=== PATIENT | male | born 1955 | race Caucasian/White ===

== ENCOUNTER 2017-04-13 12:25 | Emergency (ER) | payer SELFPAY ==
[~2017-04-13] VITALS: Ht 182.9 cm; Wt 97.0 kg
[~2017-04-13 12:25] MED LIST: BLOOD PRESSURE; PROZAC40 MG PO
[2017-04-13 13:01] LABS: MCH 32.7 PG (29.0-34.0); MCHC 34.3 G/DL (30.0-36.0); MCV 95.3 FL (86-99); MEAN PLAT.VOLUME 9.4 uM^3 (9.0-12.4); PLATELET COUNT 224 K/uL (156-360); RBC DIS.WIDTH-CV 11.9 % (11.8-14.6); RBC DIS.WIDTH-SD 41.8 % (39-53); RED BLOOD COUNT 5.14 M/uL (4.00-5.50); WHITE BLOOD COUNT 8.5 K/uL (4.1-10.2)
[2017-04-13 13:13] LABS: CHLORIDE 102 mEq/L (99-109); SODIUM 138 mEq/L (136-147)
[2017-04-13 13:15] LABS: GLUCOSE 161 mg/dL (70-99)
[2017-04-13 13:16] LABS: ANION GAP 13 MEQ/L (2-14)
[2017-04-13 13:17] LABS: TOTAL BILIRUBIN 0.5 mg/dL (0.0-1.0)
[2017-04-13 13:19] LABS: ALKALINE PHOSPHATASE 74 IU/L (3-129); GFR ESTIMATE (CALCULATED) 44 mL/min/
[2017-04-13 13:20] LABS: UREA NITROGEN (BUN) 23 mg/dL (9-23)
[2017-04-13 13:22] LABS: LIPASE 18 U/L (1.0-51.0)
[2017-04-13 13:40] LABS: ADD MIUA? YES; BILIRUBIN MODERATE; BLOOD NEGATIVE; COLOR AMBER ((YELLOW)); GLUCOSE (STRIP) NEGATIVE; KETONES 5; LEUKOCYTES NEGATIVE; NITRITE NEGATIVE; PROTEIN (STRIP) 100; SPECIFIC GRAVITY 1.025 (1.000-1.030); UROBILINOGEN 0.2 MG/DL (0.2-1.0)
[2017-04-13 13:50] LABS: BACTERIA RARE /HPF; CALCIUM OXALATE CRYSTALS 3+ /HPF; EPITHELIAL CELLS RARE /HPF; HYALINE CASTS TNTC /LPF; MUCUS 2+ /LPF; RED BLOOD CELLS 0-5 /HPF (0-5); UCUL ADDED? NO; WHITE BLOOD CELLS 0-5 /HPF (0-5)
[2017-04-13 14:15] LABS: TROP-I INTERPRETATION NEGATIVE; TROPONIN-I 0.04 ng/mL (0.0-0.30)
[2017-04-13 14:20] LABS: ICTOTEST NEGATIVE
[2017-04-13] MEDS ORDERED: ZOFRAN ODT4 MG PO (16:20)
[2017-04-13 16:31] VITALS: BP 153/92
== END 2017-04-13 16:34 | disposition home or self-care (01) ==
LOC: EME 12:25
PROVIDERS: Emergency Medicine
DX: K52.9 Noninfective gastroenteritis and colitis, unspecified (principal); F32.9 Major depressive disorder, single episode, unspecified; I10 Essential (primary) hypertension; F17.200 Nicotine dependence, unspecified, uncomplicated; E86.0 Dehydration; N17.9 Acute kidney failure, unspecified
CPT/HCPCS: 71020; 80053; 81003; 83605; 83690; 84484; 85027; 87040; 93005; 99281; 99285; J7030

== ENCOUNTER 2018-04-29 18:10 | Emergency (ER) | payer BC ==
[~2018-04-29] VITALS: Ht 182.9 cm; Wt 103.4 kg
[~2018-04-29 18:10] MED LIST changes: +ZOFRAN ODT4 MG PO
[2018-04-29] MEDS ORDERED: NORCO 5/3251 TABLET PO (20:17)
[2018-04-29 20:35] VITALS: BP 130/87
== END 2018-04-29 20:34 | disposition home or self-care (01) ==
LOC: EME 18:10
PROC: 2W3CX1Z Immobilization of Right Lower Arm using Splint (ICD-10-PCS; principal; 2018-04-29)
DX: S62.336A Displaced fracture of neck of fifth metacarpal bone, right hand, initial encounter for closed fracture (principal); W22.09XA Striking against other stationary object, initial encounter
CPT/HCPCS: 73130; 99281; 99283